=== PATIENT | female | born 1980 | race Caucasian/White ===

== ENCOUNTER 2016-11-13 13:02 | Emergency (ER) | payer OTHER ==
[2016-11-13 13:26] VITALS: BP 147/71
[2016-11-13] MEDS ORDERED: Sodium Chloride 0.9% 10 ML Syringe FLUSH PRN ×2 (13:56→14:19)
--- NOTE | 2016-11-13 14:03 | EDM.PDOC ---
ED HPI GENERAL MEDICAL PROBLEM - General Chief Complaint: Lower Extremity Injury/Pain Stated Complaint: LEG PAIN Time Seen by Provider: 11/13/16 13:32 Source of Information: Reports: Patient History Limitations: Reports: No Limitations - History of Present Illness INITIAL COMMENTS - FREE TEXT/NARRATIVE: Patient is a 36-year-old female who presents to the ED complaining of left hip pain. States the pain started this past Wednesday and has progressively gotten worse. Describes the pain as a dull ache with sharp pain shooting pains down her leg. 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 Patient has history of crohns disease and has been receiving humira injection once a week for 8 wks. Patient has been self administering the humira herself. States she has been giving the shot in the upper leg alternating from right to left. States she just completed antibiotics for infection to the pyoderma gangreosum. States the redness has significant improved with Levaquin and doxycycline antibiotic therapy. She recently completed a ten-day course of both. She has a history of multiple infections to the affected area. Area is tender mild in nature. There's been no red streaking or pain radiating up towards her hip. Dr. Da Silva GI doctor managing her Crohn's disease is concerned that the infection may have moved to her left hip. Requested the patient be seen in the ED with lab work and CT of the left hip obtained. Patient has had intermittent night sweats but no documented fever. She denies any shortness of breath, chest pain, pain with urination, or any additional complaints. 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 Social & Family History - Tobacco Use Smoking Status *Q: Never Smoker - Caffeine Use Caffeine Use: Reports: None - Recreational Drug Use Recreational Drug Use: No Review of Systems - Review of Systems Review Of Systems: See Below Constitutional: Reports: Chills. Denies: Fever Respiratory: Reports: No Symptoms Cardiovascular: Reports: No Symptoms GI/Abdominal: Denies: Abdominal Pain (no change), Decreased Appetite, Diarrhea, Nausea, Vomiting Genitourinary: Reports: No Symptoms Musculoskeletal: Reports: Joint Pain (left hip) Skin: Reports: Wound (pyroderma gangriosum left diaz) ED EXAM, GENERAL - Physical Exam Exam: See Below Exam Limited By: No Limitations General Appearance: Alert, WD/WN, No Apparent Distress Ears: Hearing Grossly Normal Nose: Normal Inspection Throat/Mouth: Normal Voice, No Airway Compromise Neck: Normal Inspection, Supple Respiratory/Chest: No Respiratory Distress, Lungs Clear, Normal Breath Sounds, No Accessory Muscle Use, Chest Non-Tender Cardiovascular: Normal Peripheral Pulses, Regular Rate, Rhythm Peripheral Pulses: 2+: Popliteal (L), Popliteal (R) GI/Abdominal: Normal Bowel Sounds, Soft, Non-Tender, No Organomegaly, No Distention Back Exam: Normal Inspection, Full Range of Motion. No: CVA Tenderness (L), CVA Tenderness (R) Extremities: Other (4.0 x 3.5 cm pyroderma gangriosum to the left diaz with granulated tissue and faint redness to the border. No increased warmth or drainage noted. No red streaking noted. Minimal pain with palaption. Pain with palation of the left hip. No tenderness with palpation of the upper leg/knee. No swelling noted. ) Neurological: Alert, Oriented, CN II-XII Intact, Normal Cognition. No: Normal Gait (mild limp with walking. ) Psychiatric: Normal Affect, Normal Mood Skin Exam: Warm, Dry, Intact, Normal Color Course - Vital Signs Last Recorded V/S: Last Vital Signs Temp 98.4 F 11/13/16 13:18 Pulse 96 11/13/16 13:18 Resp 18 11/13/16 13:18 BP 147/71 H 11/13/16 13:18 Pulse Ox 98 11/13/16 13:18 - Orders/Labs/Meds Orders: Active Orders 24 hr Category Date Time Status Peripheral IV Care [RC] . DIRECTED Care 11/13/16 13:57 Active Hip w Cont Lt [CT] Stat Exams 11/13/16 14:10 Taken CULTURE BLOOD [BC] Stat Lab 11/13/16 14:10 Received CULTURE BLOOD [BC] Stat Lab 11/13/16 14:25 Received Blood Culture x2 Reflex Set [OM.PC] Stat Oth 11/13/16 13:57 Ordered Peripheral IV Insertion Adult [OM.PC] Stat Oth 11/13/16 13:57 Ordered Labs: Laboratory Tests 11/13/16 11/13/16 Range/Units 13:45 13:45 WBC 9.41 (3.98-10.04) K/mm3 RBC 4.35 (3.98-5.22) M/mm3 Hgb 13.5 (11.2-15.7) gm/L Hct 41.1 (34.1-44.9) % MCV 94.5 (79.4-94.8) fl MCH 31.0 (25.6-32.2) pg MCHC 32.8 (32.2-35.5) g/dl RDW Std Deviation 41.6 (36.4-46.3) fL Plt Count 248 (182-369) K/mm3 MPV 10.7 (9.4-12.3) fl Neut % (Auto) 41.7 (34.0-71.1) % Lymph % (Auto) 44.2 (19.3-51.7) % Dickey % (Auto) 10.4 (4.7-12.5) % Eos % (Auto) 3.2 (0.7-5.8) Baso % (Auto) 0.4 (0.1-1.2) % Neut # (Auto) 3.92 (1.56-6.13) K/mm3 Lymph # (Auto) 4.16 H (1.18-3.74) K/mm3 Dickey # (Auto) 0.98 H (0.24-0.36) K/mm3 Eos # (Auto) 0.30 (0.04-0.36) K/mm3 Baso # (Auto) 0.04 (0.01-0.08) K/mm3 Sodium 140 (136-145) mEq/L Potassium 3.9 (3.5-5.1) mEq/L Chloride 105 (98-107) mEq/L Carbon Dioxide 25 (21-32) mEq/L Anion Gap 13.9 (5-15) BUN 13 (7-18) mg/dL Creatinine 0.8 (0.55-1.02) mg/dL Est Cr Clr Drug Dosing 83.95 mL/min Estimated GFR (MDRD) > 60 (>60) mL/min BUN/Creatinine Ratio 16.3 (14-18) Glucose 87 (74-106) mg/dL Calcium 8.9 (8.5-10.1) mg/dL Total Bilirubin 0.2 (0.2-1.0) mg/dL AST 13 L (15-37) U/L ALT 21 (14-59) U/L Alkaline Phosphatase 63 (46-116) U/L C-Reactive Protein < 0.2 (<1.0) mg/dL Total Protein 7.7 (6.4-8.2) g/dl Albumin 4.0 (3.4-5.0) g/dl Globulin 3.7 gm/dL Albumin/Globulin Ratio 1.1 (1-2) Meds: Medications Discontinued Medications Generic Name Dose Route Start Last Admin Trade Name Freq PRN Reason Stop Dose Admin Iopamidol 125 ml 11/13/16 14:19 11/13/16 14:44 Isovue-300 (61%) IVPUSH 11/13/16 14:20 125 ml ONETIME ONE Administration Sodium Chloride 10 ml 11/13/16 13:56 11/13/16 14:17 Saline Flush FLUSH 10 ml ASDIRECTED PRN Administration Keep Vein Open Sodium Chloride 10 ml 11/13/16 14:19 11/13/16 14:44 Saline Flush FLUSH 10 ml ONETIME PRN Administration IV FLUSH - Re-Assessments/Exams Free Text/Narrative Re-Assessment/Exam: 11/13/16 14:00 Ordered peripheral IV. Pain is controlled. feeding. Initial labs include CBC, chem 14, CRP, and blood cultures x2. Discussed patient with Dr. Oracio CASTRO second chef Joseph Zavala. He knows the patient very well and is managing her Crohn' s. He requests CBC, C14, CRP and left hip CT. IF labs are normal and Left HIp CT negative send home with tylenol only. 11/13/16 1545 Labs reviewed. Essentially normal. 1605 CT of the hip impression: CT study of the left hip appears within normal limits. If infection is still strongly suspected, arthrocentesis is recommended. Will discharge patient home with instructions. Departure - Departure Time of Disposition: 16:18 Disposition: Home, Self-Care 01 Condition: good Clinical Impression: Left hip pain, Immunosuppressed status Crohns disease Qualifiers: Gastrointestinal tract location: unspecified location Digestive disease complication type: unspecified complication Qualified Code(s): K50.919 - Crohn' s disease, unspecified, with unspecified complications - Discharge Information Instructions: Hip Pain Referrals: Smitha Castillo, FINANCIAL SALES PROFESSIONAL [Primary Care Provider] - Forms: ED Department Discharge Additional Instructions: Labs and CT of the left hip were normal. We'll have her utilize Tylenol 650 mg every 4-6 hours for left hip pain. Refrain from any aggravating factors. Continue with current treatment of pyroderma gangriosum. See your PCP this coming week for reevaluation. Suggest scheduling appt with Dr. Oracio CASTRO doctor for followup as well in the next 1-2 wks. Return to the E.D. if you develop any new or worsening symptoms. - My Orders Last 24 Hours: My Active Orders 11/13/16 13:57 Peripheral IV Care [RC] . DIRECTED Blood Culture x2 Reflex Set [OM.PC] Stat Peripheral IV Insertion Adult [OM.PC] Stat 11/13/16 14:10 Hip w Cont Lt [CT] Stat CULTURE BLOOD [BC] Stat 11/13/16 14:25 CULTURE BLOOD [BC] Stat - Assessment/Plan Last 24 Hours: My Active Orders 11/13/16 13:57 Peripheral IV Care [RC] . DIRECTED Blood Culture x2 Reflex Set [OM.PC] Stat Peripheral IV Insertion Adult [OM.PC] Stat 11/13/16 14:10 Hip w Cont Lt [CT] Stat CULTURE BLOOD [BC] Stat 11/13/16 14:25 CULTURE BLOOD [BC] Stat
[2016-11-13] MEDS ORDERED: Iopamidol 612 MG/ML 150 ML Bottle IVPUSH ONE (14:19)
--- NOTE | 2016-11-16 10:23 | CT ---
CT left hip Technique: Multiple axial sections were obtained through the left hip. Study was obtained with contrast. Findings: No abnormal enhancement is seen around the left hip. No fluid collections around the left hip are seen to indicate soft tissue abscess. No joint effusion is appreciated on this exam. No fracture or other acute bony abnormality is seen. Joint space appears preserved within the left hip. Impression: 1. CT study of the left hip appears within normal limits. If hip infection is still strongly suspected, arthrocentesis is then recommended. Diagnostic code #1 MTDD
== END 2016-11-13 16:30 | disposition home or self-care (01) ==
LOC: JD.ED 13:02
DX: M25.552 Pain in left hip (principal); K50.919 Crohn's disease, unspecified, with unspecified complications; K21.9 Gastro-esophageal reflux disease without esophagitis
CPT/HCPCS: 36415; 73701; 80053; 85025; 86140; 87040; 99284; J7050; Q9967

== ENCOUNTER 2017-08-05 17:44 | Emergency (ER) | payer OTHER ==
[2017-08-05 17:57] VITALS: BP 108/79
[2017-08-05] MEDS ORDERED: Cephalexin 500 MG Cap PO ONE (18:20)
--- NOTE | 2017-08-05 18:23 | EDM.PDOC ---
ED HPI GENERAL MEDICAL PROBLEM - General Chief Complaint: Lower Extremity Injury/Pain Stated Complaint: STICHES RIPPED OPEN ON R ANKLE Time Seen by Provider: 08/05/17 17:55 Source of Information: Reports: Patient, Family (Mother) History Limitations: Reports: No Limitations - History of Present Illness INITIAL COMMENTS - FREE TEXT/NARRATIVE: The patient states that she has had a tattoo on the lateral aspect of her distal right leg for many years. She decided to have it modified with red dye about 3 years ago, however, the modified areas never healed. The non-healed areas were excised per the Plastic Surgeon Dr. Quentin Alan, from [facility], this past 07/30/2017. The patient states that she slipped and fell on ice around 17:10 tonight, somehow cutting several of the sutures holding the inferior aspect of the wound. The patient is otherwise uninjured. The patient's PCP is Zayda Castillo. Right Lower Ankle Pain Score (Numeric/FACES): 7 - Related Data Allergies Allergy/AdvReac Type Severity Reaction Status Date / Time No Known Allergies Allergy Verified 08/05/17 17:51 Home Meds: Home Meds Adalimumab [Humira] 1 injection INJECT WEEKLY 11/13/16 [History] Cephalexin [Keflex] 1 tab PO Q6H #16 capsule 08/05/17 [Rx] Past Medical History Gastrointestinal History: Reports: GERD, Inflammatory Bowel Disease (Crohn disease) Psychiatric History: Reports: Depression, Other (See Below) (Fibromyalgia) Dermatologic History: Reports: Other (See Below) (Pyoderma gangrenosum) - Past Surgical History GI Surgical History: Reports: Colonoscopy, EGD Social & Family History - Tobacco Use Smoking Status *Q: Former Smoker Years of Tobacco use: 2 Packs/Tins Daily: 0.1 Month Tobacco Last Used: Quit 2014 - Caffeine Use Caffeine Use: Reports: None - Alcohol Use Alcohol Use History: Yes Alcohol Use Frequency: Socially - Recreational Drug Use Recreational Drug Use: No - Living Situation & Occupation Living situation: Reports: Single, Alone 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 ED EXAM, GENERAL - Physical Exam Exam: See Below Exam Limited By: No Limitations General Appearance: Alert, WD/WN, No Apparent Distress Extremities: Other (There is a tattoo on the lateral aspect of the patient's distal right leg. Within the tattoo, there is a backwards "L"-shaped sutured wound, the lower aspect of which, measuring approximately 4 cm in length, has opened up with cut sutures. The skin tension is high, therefore the edges of the wound separate by up to 2 cm, and cannot be approximated by pushing the edges together with my fingers. The skin edges are lined by fresh suture puncture wheeler, none of which appear to have torn. Neurovascular status of the right lower extremity appears to be intact.) Course - Vital Signs Last Recorded V/S: Last Vital Signs Temp 36.3 C 08/05/17 17:53 Pulse 87 08/05/17 17:53 Resp 16 08/05/17 17:53 BP 108/79 08/05/17 17:53 Pulse Ox 98 08/05/17 17:53 - Orders/Labs/Meds Meds: Medications Discontinued Medications Generic Name Dose Route Start Last Admin Trade Name Freq PRN Reason Stop Dose Admin Cephalexin 500 mg 08/05/17 18:20 08/05/17 18:26 Keflex PO 08/05/17 18:21 500 mg ONETIME ONE Administration - Re-Assessments/Exams Free Text/Narrative Re-Assessment/Exam: 08/05/17 18:18 While the patient fell and opened up her surgical wound only an hour ago, the original wound is 6 days old. Closure at this point would significantly increase the risk of an infection. Further, since the edges of the skin have been holding the sutures, the edges of the wound are now full of suture holes. If I attempted to close the wound now, I would have to place sutures distal to those holes, which may mean suturing up devitalized tissue if the edges were not revised. I do not see any benefit in trying to close the wound tonight. Instead, I have elected to dress the wound and have the patient follow-up with her Plastic Surgeon, Dr. Quentin Alan, first thing tomorrow morning. In the meantime, I will start her on Keflex. Departure - Departure Time of Disposition: 18:23 Disposition: Home, Self-Care 01 Condition: Fair Clinical Impression: Broken suture - Discharge Information Prescriptions: Cephalexin [Keflex] 1 tab PO Q6H #16 capsule Instructions: Incision Care, Adult Referrals: Quentin Alan Jr, MD [Consulting Physician] - Forms: ED Department Discharge Additional Instructions: You were seen in the emergency room after you slipped and fell, opening up several sutures on your right leg. The wound has been dressed. Leave this alone overnight. You have been started on the antibiotic Keflex. A prescription for this has been sent to the [facility] located in the [employer] store. Take one tablet every 6 hours, as prescribed. Take [id number] Tylenol or ibuprofen as needed for discomfort. Contact the office of your Plastic Surgeon, Dr. Quentin Alan, first thing tomorrow morning. When you see Dr. Alan, let him know that you are on Keflex, to see if he wants to keep you on it. If any other problems, please do not hesitate to return to the ER.
== END 2017-08-05 18:40 | disposition home or self-care (01) ==
LOC: JD.ED 17:44
DX: S91.011D Laceration without foreign body, right ankle, subsequent encounter (principal); Z87.891 Personal history of nicotine dependence; X58.XXXD Exposure to other specified factors, subsequent encounter
CPT/HCPCS: 99283; A9270

== ENCOUNTER 2019-03-01 10:41 | Emergency (ER) | payer OTHER ==
[2019-03-01 11:10] VITALS: BP 144/100; PULSE 78
[2019-03-01] MEDS ORDERED: Ondansetron 4 MG/2 ML SDV IVPUSH ONE ×2 (12:12→13:30)
[2019-03-01] MEDS ORDERED: HYDROmorphone 0.5 MG/0.5 ML Syringe IVPUSH ONE ×2 (12:12→15:15)
[2019-03-01] MEDS ORDERED: Sodium Chloride 0.9% 1,000 ML IV SCH (12:15)
--- NOTE | 2019-03-01 12:15 | EDM.PDOC ---
ED HPI GENERAL MEDICAL PROBLEM - General Chief Complaint: Flank Pain Stated Complaint: KIDNEY STONES Time Seen by Provider: 03/01/19 11:44 Source of Information: Reports: Patient, Other (CBC, CMP, CRP, U/A results from [facility] this AM) History Limitations: Reports: No Limitations - History of Present Illness INITIAL COMMENTS - FREE TEXT/NARRATIVE: Ms. Humphreys is a very pleasant 39-year-old woman with a past medical history significant for untreated GERD and treated Crohn disease, who states that she developed nausea 2 days ago, 02/27/2019, then emesis yesterday morning, 02/28/2019. She was able to go to work, but had additional nausea and vomiting while at work. She developed left flank pain around 11:00 yesterday morning, which has been progressively getting worse. The pain has been waxing and waning, but she notes that it is made worse if she lies in the left decubitus position. She has not had any recent fever. No recent constipation or diarrhea, although she states that she has had occasional burning when she has a bowel movement, and occasional blood when wiping, although she has not noticed any bloody bowel movements. No dysuria or urinary frequency, but she has had urinary urgency. No prior similar symptoms. The patient was seen by her PCP this morning. A CBC, CMP, CRP, and urinalysis were all performed, and all were unremarkable. Her urinalysis showed trace blood and trace leukocyte esterase, but 0-2 RBCs and 0-5 WBCs, with few bacteria. She was then instructed to come here to obtain a CT scan to evaluate for a ureterolith. The patient's PCP is Dr. Edita Schmidt. Her Kennel Keeper is Dr. Modesto Da Silva. Her Water/Wastewater Project Manager is Dr. Anthony Curtis Her Iuss Analyst is KARL Dumont. Her pain retail department manager is Shabana Rizo NP. She does not recall the name of her ENT or Urologist. Left Flank Pain Score (Numeric/FACES): 7 - Related Data Allergies Allergy/AdvReac Type Severity Reaction Status Date / Time No Known Allergies Allergy Verified 03/01/19 11:44 Home Meds: Home Meds Adalimumab [Humira] 40 mg INJECT ASDIRECTED 11/13/16 [History] Cyclobenzaprine [Flexeril] 10 mg PO BEDTIME PRN 03/01/19 [History] Fluticasone Propionate [Flonase] 1 spray NASBOTH DAILY 03/01/19 [History] Hyoscyamine [Hyomax-SL] 0.125 mg PO TID PRN 03/01/19 [History] Methocarbamol 500 mg PO TID PRN 03/01/19 [History] Ondansetron [Zofran ODT] 1 tab PO Q8H PRN #10 tab.dis 03/01/19 [Rx] Ondansetron [Zofran ODT] 4 mg SL Q4HR PRN 03/01/19 [History] Orphenadrine [Norflex] 1 tab PO Q12H PRN #14 tab.er 03/01/19 [Rx] Sulfacetamide Sodium/Sulfur [Sulfacetamide-Sulfur 10-5% Crm] 1 applic TOP DAILY 03/01/19 [History] Triamcinolone Acetonide [Triamcinolone Acetonide 0.5%] 1 applic TOP BID [History] Past Medical History HEENT History: Reports: Allergic Rhinitis Gastrointestinal History: Reports: GERD (untreated), Inflammatory Bowel Disease (Crohn disease dx'd 2004) Musculoskeletal History: Reports: Arthritis (spine) Psychiatric History: Reports: Depression (untreated), Other (See Below) ( Fibromyalgia - untreated) Hematologic History: Reports: B12 Deficiency, Iron Deficiency Immunologic History: Reports: Other (See Below) Other Immunologic History: HLA-B27 positive Dermatologic History: Reports: Other (See Below) (Pyoderma gangrenosum) - Past Surgical History HEENT Surgical History: Reports: Adenoidectomy, Oral Surgery (wisdom teeth extraction), Other (See Below) (Right inner ear surgery) GI Surgical History: Reports: Colonoscopy (x 5 or 6), EGD (x 3) Social & Family History - Tobacco Use Smoking Status *Q: Former Smoker Years of Tobacco use: 5 Packs/Tins Daily: 0.2 Month/Year Tobacco Last Used: Quit 2015 - Caffeine Use Caffeine Use: Reports: Soda - Alcohol Use Alcohol Use History: Yes Alcohol Use Frequency: Rarely - Recreational Drug Use Recreational Drug Use: Yes Drug Use in Last 12 Months: No Recreational Drug Type: Reports: Marijuana/Hashish (last smoked in 2011) - Living Situation & Occupation Living situation: Reports: Single, with Family 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 ED EXAM, GI/ABD - Physical Exam Exam: See Below Exam Limited By: No Limitations General Appearance: Alert, WD/WN, No Apparent Distress Eyes: Bilateral: Normal Appearance, EOMI Ears: Normal External Exam, Hearing Grossly Normal Nose: Normal Inspection Throat/Mouth: Normal Inspection, Normal Lips, Normal Voice, No Airway Compromise Head: Atraumatic, Normocephalic Neck: Normal Inspection, Full Range of Motion Respiratory/Chest: No Respiratory Distress, Lungs Clear, Normal Breath Sounds, No Accessory Muscle Use Cardiovascular: Normal Peripheral Pulses, Regular Rate, Rhythm, No Edema, No Gallop, No JVD, No Murmur, No Rub GI/Abdominal Exam: Normal Bowel Sounds, Soft, No Organomegaly, No Distention, No Abnormal Bruit, No Mass, Tender (Mild discomfort to palpation of the entire abdomen, but tender in the left lower quadrant only) (Female) Exam: Deferred Rectal (Female) Exam: Deferred Back Exam: Normal Inspection, Full Range of Motion, Paraspinal Tenderness (left lumbar). No: CVA Tenderness (L), CVA Tenderness (R) Extremities: Normal Inspection, Normal Range of Motion, No Pedal Edema, Normal Capillary Refill Neurological: Alert, Oriented, Normal Cognition, No Motor/Sensory Deficits Psychiatric: Normal Affect Skin Exam: Warm, Dry, Intact, Normal Color, No Rash Course - Vital Signs Last Recorded V/S: Last Vital Signs Temp 36.9 C 03/01/19 10:58 Pulse 78 03/01/19 10:58 Resp 18 03/01/19 10:58 BP 144/100 H 03/01/19 10:58 Pulse Ox 97 03/01/19 10:58 - Orders/Labs/Meds Orders: Active Orders 24 hr Category Date Time Status Sodium Chloride 0.9% [Normal Saline] 1,000 ml Med 03/01/19 12:15 Active IV ASDIRECTED Medication Orders Sodium Chloride (Normal Saline) 1,000 mls @ 150 mls/hr IV ASDIRECTED DEVON Last Admin: 03/01/19 12:53 Dose: 150 mls/hr Labs: Laboratory Tests 03/01/19 Range/Units 12:28 Urine HCG, Qual Negative (NEGATIVE) Meds: Medications Generic Name Dose Route Start Last Admin Trade Name Bruna PRN Reason Stop Dose Admin Sodium Chloride 1,000 mls @ 150 mls/hr 03/01/19 12:15 03/01/19 12:53 Normal Saline IV 150 mls/hr ASDIRECTED DEVON Administration Discontinued Medications Generic Name Dose Route Start Last Admin Trade Name Bruna PRN Reason Stop Dose Admin Diatrizoate Meglum/Diatrizoate Sod 90 ml 03/01/19 13:47 03/01/19 13:55 Gastrografin 37% PO 03/01/19 13:48 90 ml ONETIME ONE Administration Hydromorphone HCl 0.5 mg 03/01/19 12:12 03/01/19 12:36 Dilaudid IVPUSH 03/01/19 12:13 0.5 mg ONETIME ONE Administration Hydromorphone HCl 0.5 mg 03/01/19 15:15 03/01/19 15:22 Dilaudid IVPUSH 03/01/19 15:16 0.5 mg ONETIME ONE Administration Iopamidol 100 ml 03/01/19 13:47 03/01/19 13:55 Isovue-300 (61%) IVPUSH 03/01/19 13:48 100 ml ONETIME ONE Administration Ondansetron HCl 4 mg 03/01/19 12:12 03/01/19 12:24 Zofran IVPUSH 03/01/19 12:13 4 mg ONETIME ONE Administration Ondansetron HCl 4 mg 03/01/19 13:30 03/01/19 13:43 Zofran IVPUSH 03/01/19 13:31 4 mg ONETIME ONE Administration Sodium Chloride 10 ml 03/01/19 13:47 03/01/19 13:55 Saline Flush FLUSH 03/01/19 13:48 10 ml ONETIME ONE Administration - Re-Assessments/Exams Free Text/Narrative Re-Assessment/Exam: 03/01/19 12:13 The cause of the patient's symptoms is not immediately clear. While she is complaining primarily of left back/flank pain, it is definitely positional, which speaks against a kidney stone. Additionally, on examination, she does not really have CVA tenderness, although she has some mild tenderness to palpation of the paraspinous muscles, suggestive of a muscle spasm. She also has abdominal tenderness, particularly to the left lower quadrant, raising the concern of diverticulitis. I am therefore recommending a CT of the abdomen and pelvis with oral and IV contrast to evaluate. Since blood work was done in the clinic this morning, we do not need to repeat that, although I would like to check a urine test. In the meantime, the patient will receive IV Dilaudid, IV Zofran, and IV fluid. 03/01/19 15:29 The patient's urine test is negative. CT of the abdomen and pelvis with oral and IV contrast is read by Dr. Schilling as: 1. No abnormality is appreciated on CT study of the abdomen and pelvis. Nothing acute is appreciated. 03/01/19 15:40 Test results discussed with the patient her family. The patient's negative workup suggests that her pain could be a skilled skeletal in etiology, although it is also possible that she is suffering from a ruptured ovarian cyst, or some other etiology. I am recommending that we start her on Norflex and have her take [id number] ibuprofen. If her pain persists, she should follow-up with her PCP. The patient is happy with this approach. Departure - Departure Time of Disposition: 15:41 Disposition: Home, Self-Care 01 Condition: Good Clinical Impression: Abdominal pain of unknown etiology, Nausea and vomiting, Flank pain - Discharge Information *PRESCRIPTION DRUG MONITORING PROGRAM REVIEWED*: Not Applicable *COPY OF PRESCRIPTION DRUG MONITORING REPORT IN PATIENT CARMENZA: Not Applicable Referrals: Edita Schmidt MD [Primary Care Provider] - Modesto Da Silva MD [Ordering Only Provider] - Ibis Gillespie PA [Ordering Only Provider] - Anthony Curtis MD [Ordering Only Provider] - Forms: ED Department Discharge Additional Instructions: You were seen in the emergency room for nausea, vomiting, left flank pain, and abdominal pain. In addition to the blood work and urinalysis that was performed by your PCP, workup in the ER included a urine test and a CT scan of your abdomen and pelvis with oral and IV contrast. Your urine test returned negative, and the CT scan of your abdomen and pelvis found no abnormalities. The cause of your symptoms is unclear. Possibilities include muscle spasms and a ruptured ovarian cyst. You have been started on the muscle relaxant Norflex. Prescriptions for Norflex and the anti-nausea medicine Zofran have been sent to the [facility], [facility]. Take one tablet of Norflex every 12 hours, starting tomorrow morning, , 03/02/2019, as prescribed. If you take Norflex, do not also take Flexeril. In addition to Norflex, you may also take [id number] ibuprofen, 2-3 tablets (400-600 mg) every 8 hours, with food, as needed for discomfort. Dissolve one tablet of Zofran on your tongue up to every 8 hours, as needed for nausea/vomiting. If your symptoms persist, please follow-up with your PCP, Dr. Edita Schmidt, for additional evaluation. If any other problems, please do not hesitate to return to the ER. - My Orders Last 24 Hours: My Active Orders 03/01/19 12:15 Sodium Chloride 0.9% [Normal Saline] 1,000 ml IV ASDIRECTED - Assessment/Plan Last 24 Hours: My Active Orders 03/01/19 12:15 Sodium Chloride 0.9% [Normal Saline] 1,000 ml IV ASDIRECTED
[2019-03-01] MEDS ORDERED: Sodium Chloride 0.9% 10 ML Syringe FLUSH ONE (13:47)
[2019-03-01] MEDS ORDERED: Iopamidol 612 MG/ML 100 ML Bottle IVPUSH ONE (13:47)
[2019-03-01] MEDS ORDERED: Diatrizoate Meglumine/Diatrizoate Sodium 37% 120 ML Bottle PO ONE (13:47)
--- NOTE | 2019-03-01 15:26 | CT ---
CT abdomen and pelvis Technique: Multiple axial sections were obtained from above the dome of the diaphragm inferiorly through the pubic symphysis. Intravenous and oral contrast was utilized. Delayed images were obtained through the bladder. Comparison: No prior abdominal imaging is available. Findings: Visualized lung bases show nothing acute. Liver contains no focal parenchymal abnormality. Gallbladder contains no calcified gallstones. Spleen appears within normal limits. Adrenal glands show no nodule. Pancreas is within normal limits. Kidneys show symmetric contrast enhancement without hydronephrosis or mass. Aorta shows no aneurysm. No retroperitoneal adenopathy or mesenteric abnormalities are seen. No pelvic mass or adenopathy is seen. No free fluid or inflammatory change is seen within the abdomen or pelvis. Delayed images show contrast within nondilated distal ureters as well as contrast seen within the bladder. Appendix felt to be visualized and is normal in size. Bone window settings were reviewed which appear within normal limits for the patient's age. Impression: 1. No abnormality is appreciated on CT study of the abdomen and pelvis. Nothing acute is appreciated. Diagnostic code #1
[2019-03-01] MEDS ORDERED: Orphenadrine 100 MG Tab.ER PO STA (15:39)
== END 2019-03-01 16:00 | disposition home or self-care (01) ==
LOC: JD.ED 10:41
DX: R10.32 Left lower quadrant pain (principal); R11.2 Nausea with vomiting, unspecified; Z87.891 Personal history of nicotine dependence; Z79.899 Other long term (current) drug therapy; Z98.890 Other specified postprocedural states
CPT/HCPCS: 74177; 81025; 96361; 96374; 96375; 96376; 99284; A9270; J1170; J2405; J7040; Q9963; Q9967

== ENCOUNTER 2020-09-01 07:17 | Emergency (ER) | payer OTHER ==
[2020-09-01 07:32] VITALS: BP 144/89; PULSE 95
[2020-09-01] MEDS ORDERED: HYDROmorphone 1 MG/ML Syringe IVPUSH ONE (07:53)
[2020-09-01] MEDS ORDERED: cefTRIAXone 2 GM in Sodium Chloride 0.9% 100 ML IV ONE (07:53)
[2020-09-01] MEDS: Sodium Chloride 0.9% 10 ML Syringe FLUSH PRN ×2 (08:31→09:12)
--- NOTE | 2020-09-01 08:35 | EDM.PDOC ---
ED HPI GENERAL MEDICAL PROBLEM - General Chief Complaint: Skin Complaint Stated Complaint: FACIAL SWELLING POST SURGERY X 10 DAYS Time Seen by Provider: 09/01/20 07:45 Source of Information: Reports: Patient History Limitations: Reports: No Limitations - History of Present Illness INITIAL COMMENTS - FREE TEXT/NARRATIVE: The patient presents with left sided facial pain and swelling On August 23 she had surgery at [facility] in [place] by Dr Navarro for septum and sinus polyp. On August 29 she had a follow up visit and the tubes were removed and some extra packing was removed. There was swelling to the left side of her face and she was put on some keflex. She had 2 days worth of medication and she feels the selling is worse and she has more pain. She woke up this morning with more swelling. She has no fever, chills, cough, chest pain, shortness of breath, abdominal pain, nausea or vomiting. She also has a headache with it. Onset: Gradual Duration: Week(s): Location: Reports: Face Quality: Reports: Sharp Severity: Moderate Improves with: Reports: None Worsens with: Reports: None Associated Symptoms: Reports: Headaches Face/Facial Pain Score (Numeric/FACES): 7 - Related Data Allergies Allergy/AdvReac Type Severity Reaction Status Date / Time No Known Allergies Allergy Verified 09/01/20 07:33 Home Meds: Home Meds methocarbamoL [Methocarbamol] 500 mg PO TID PRN 03/01/19 [History] Albuterol [Ventolin HFA] 2 puff INH DAILY PRN 09/01/20 [History] Famotidine [Pepcid] 20 mg PO DAILY 09/01/20 [History] Fluticasone Propionate [Flonase] 09/01/20 [History] Folic Acid 09/01/20 [History] InFLIXimab [Remicade] 500 mg PO ASDIRECTED 09/01/20 [History] Past Medical History HEENT History: Reports: Allergic Rhinitis Other HEENT History: right ear surgery for inner ear/eardrum Respiratory History: Reports: Bronchitis, Recurrent Gastrointestinal History: Reports: GERD, Inflammatory Bowel Disease Other Gastrointestinal History: chrons disease since 2004 Musculoskeletal History: Reports: Arthritis Psychiatric History: Reports: Depression, Other (See Below) Hematologic History: Reports: B12 Deficiency, Iron Deficiency Immunologic History: Reports: Other (See Below) Other Immunologic History: HLA-B27 positive Dermatologic History: Reports: Other (See Below) Other Dermatologic History: pyroderma gangriosm. 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) ED ROS GENERAL - Review of Systems Review Of Systems: See Below Constitutional: Reports: No Symptoms HEENT: Reports: Other (Left facial edema and pain) Respiratory: Reports: No Symptoms Cardiovascular: Reports: No Symptoms Endocrine: Reports: No Symptoms GI/Abdominal: Reports: No Symptoms : Reports: No Symptoms Musculoskeletal: Reports: No Symptoms ED EXAM, SKIN/RASH Exam: See Below Exam Limited By: No Limitations General Appearance: Alert, No Apparent Distress Eye Exam: Left Eye: Other (Mild lid edema), Bilateral Eye: EOMI, PERRL Ears: Normal External Exam Nose: Normal Inspection Head: Atraumatic, Other (Mild edema to the maxilla with pain upon palpation) Neck: Normal Inspection, Supple, Non-Tender Respiratory/Chest: No Respiratory Distress, Lungs Clear, Normal Breath Sounds Cardiovascular: Regular Rate, Rhythm, No Edema, No Murmur GI/Abdominal: Soft, Non-Tender, No Organomegaly, No Mass Back Exam: Normal Inspection Extremities: Normal Inspection Course - Vital Signs Last Recorded V/S: Last Vital Signs Temp 97.2 F 09/01/20 07:24 Pulse 95 09/01/20 07:24 Resp 18 09/01/20 07:24 BP 144/89 H 09/01/20 07:24 Pulse Ox 99 09/01/20 07:24 - Orders/Labs/Meds Orders: Active Orders 24 hr Category Date Time Status Cardiac Monitoring [RC] . DIRECTED Care 09/01/20 07:52 Active Peripheral IV Care [RC] . DIRECTED Care 09/01/20 07:52 Active Sodium Chloride 0.9% [Saline Flush] Med 09/01/20 07:52 Active 10 ml FLUSH ASDIRECTED PRN Peripheral IV Insertion Adult [OM.PC] Stat Oth 09/01/20 07:52 Ordered Medication Orders Sodium Chloride (Sodium Chloride 0.9% 10 Ml Syringe) 10 ml FLUSH ASDIRECTED PRN PRN Reason: Keep Vein Open Last Admin: 09/01/20 09:12 Dose: 10 ml Documented by: Admin: 09/01/20 08:31 Dose: 10 ml Documented by: KARSON Labs: Laboratory Tests 09/01/20 09/01/20 Range/Units 08:17 08:17 WBC 8.74 (3.98-10.04) K/mm3 RBC 4.34 (3.98-5.22) M/mm3 Hgb 13.8 (11.2-15.7) gm/dl Hct 42.9 (34.1-44.9) % MCV 98.8 H D (79.4-94.8) fl MCH 31.8 (25.6-32.2) pg MCHC 32.2 (32.2-35.5) g/dl RDW Std Deviation 42.3 (36.4-46.3) fL Plt Count 315 (182-369) K/mm3 MPV 10.2 (9.4-12.3) fl Neut % (Auto) 64.7 (34.0-71.1) % Lymph % (Auto) 21.7 (19.3-51.7) % [place] % (Auto) 9.7 (4.7-12.5) % Eos % (Auto) 3.2 (0.7-5.8) Baso % (Auto) 0.6 (0.1-1.2) % Neut # (Auto) 5.65 (1.56-6.13) K/mm3 Lymph # (Auto) 1.90 (1.18-3.74) K/mm3 Montgomery # (Auto) 0.85 H (0.24-0.36) K/mm3 Eos # (Auto) 0.28 (0.04-0.36) K/mm3 Baso # (Auto) 0.05 (0.01-0.08) K/mm3 Sodium 142 (136-145) mEq/L Potassium 4.1 (3.5-5.1) mEq/L Chloride 103 (98-107) mEq/L Carbon Dioxide 27 (21-32) mEq/L Anion Gap 16.1 H (5-15) BUN 13 (7-18) mg/dL Creatinine 1.0 (0.55-1.02) mg/dL Est Cr Clr Drug Dosing 63.22 mL/min Estimated GFR (MDRD) > 60 (>60) mL/min BUN/Creatinine Ratio 13.0 L (14-18) Glucose 101 (74-106) mg/dL Calcium 9.6 (8.5-10.1) mg/dL Total Bilirubin 0.2 (0.2-1.0) mg/dL AST 16 (15-37) U/L ALT 22 (14-59) U/L Alkaline Phosphatase 67 (46-116) U/L C-Reactive Protein 2.2 H* (<1.0) mg/dL Total Protein 8.9 H (6.4-8.2) g/dl Albumin 4.2 (3.4-5.0) g/dl Globulin 4.7 gm/dL Albumin/Globulin Ratio 0.9 L (1-2) Meds: Medications Generic Name Dose Route Start Last Admin Trade Name Bruna PRN Reason Stop Dose Admin Sodium Chloride 10 ml 09/01/20 07:52 09/01/20 09:12 Sodium Chloride 0.9% 10 Ml Syringe FLUSH 10 ml ASDIRECTED PRN Administration Keep Vein Open Discontinued Medications Generic Name Dose Route Start Last Admin Trade Name Bruna PRN Reason Stop Dose Admin Hydromorphone HCl 1 mg 09/01/20 07:53 09/01/20 08:23 Hydromorphone 1 Mg/Ml Syringe IVPUSH 09/01/20 07:54 1 mg ONETIME ONE Administration Ceftriaxone Sodium 2 gm/ 100 mls @ 200 mls/hr 09/01/20 07:53 09/01/20 08:30 Sodium Chloride IV 09/01/20 08:22 200 mls/hr ONETIME ONE Administration Iopamidol 80 ml 09/01/20 09:11 09/01/20 09:12 Iopamidol 612 Mg/Ml 100 Ml Bottle IVPUSH 09/01/20 09:12 80 ml ONETIME ONE Administration - Re-Assessments/Exams Free Text/Narrative Re-Assessment/Exam: 09/01/20 08:35 I ordered an IV saline lock, dilaudid 1mg IV, rocephin 2grams IV, labs, and a CT maxillofacial with IV contrast. 09/01/20 09:51 Her CBC and CMP look good. 09/01/20 09:53 Her CRP is elevated at 2.2. Her CT shows paranasal sinus findings. Difficult to determine how much of the sinus findings are acute or chronic. Please correlate with the patient's symptoms. Mild soft tissue swelling within the upper left cheek. No evidence of abscess. No other acute abnormality is appreciated. She feels better. I will keep her on the keflex and I will five her some hydrocodone for at home. He surgeon is in [place] tomorrow. She will try to see her. I have sent the [facility]. Departure - Departure Time of Disposition: 09:55 Disposition: Home, Self-Care 01 Condition: Good Clinical Impression: Facial edema Sinusitis Qualifiers: Sinusitis location: frontal Chronicity: acute Recurrence: non-recurrent Qualified Code(s): J01.10 - Acute frontal sinusitis, unspecified - Discharge Information Referrals: Britt Castillo MD [Primary Care Provider] - Forms: ED Department Discharge Additional Instructions: Continue taking your antibiotics. Try heat on your face and see if that help. Do it 3 times per day for 5 days. Take the hydrocodone for pain. Try to sleep with your head up. Follow up with your doctor tomorrow. Let them know the CT scan was sent to their system. Please return if you are worse. Sepsis Event Note (ED) - Evaluation Sepsis Screening Result: No Definite Risk - Focused Exam Vital Signs: Vital Signs Temp Pulse Resp BP Pulse Ox 09/01/20 07:24 97.2 F 95 18 144/89 H 99 - My Orders Last 24 Hours: My Active Orders 09/01/20 07:52 Cardiac Monitoring [RC] . DIRECTED Peripheral IV Care [RC] . DIRECTED Sodium Chloride 0.9% [Saline Flush] 10 ml FLUSH ASDIRECTED PRN Peripheral IV Insertion Adult [OM.PC] Stat - Assessment/Plan Last 24 Hours: My Active Orders 09/01/20 07:52 Cardiac Monitoring [RC] . DIRECTED Peripheral IV Care [RC] . DIRECTED Sodium Chloride 0.9% [Saline Flush] 10 ml FLUSH ASDIRECTED PRN Peripheral IV Insertion Adult [OM.PC] Stat
[2020-09-01] MEDS ORDERED: Iopamidol 612 MG/ML 100 ML Bottle IVPUSH ONE (09:11)
--- NOTE | 2020-09-01 09:39 | CT ---
CT maxillofacial Technique: Multiple axial sections were obtained from inferior to the mandible through superior to the frontal sinuses. Intravenous contrast was utilized. Reconstructed coronal and sagittal images were obtained. Findings: Mild soft tissue swelling is seen within the upper left cheek. Right and left globes are symmetric. Lacrimal glands are symmetric. No retrobulbar abnormality is appreciated. No focal fluid collections are seen. Scattered lymph nodes are noted which are believed to be within normal limits. Carotid glands and submandibular salivary glands are within normal limits. Moderate mucosal thickening is seen within both maxillary sinuses. Mild mucosal thickening is seen within the ethmoid sinuses with minimal mucosal thickening seen within the sphenoid sinus. Mucosal thickening is also noted within the left frontal sinus. Impression: 1. Paranasal sinus findings as noted above. Difficult to determine how much of the sinus findings are acute or chronic. Please correlate with the patient's symptoms. 2. Mild soft tissue swelling within the upper left cheek. No evidence of abscess. 3. No other acute abnormality is appreciated. Diagnostic code #3
== END 2020-09-01 10:15 | disposition home or self-care (01) ==
LOC: JD.ED 07:17
DX: J01.10 Acute frontal sinusitis, unspecified (principal); R79.82 Elevated C-reactive protein (CRP); K21.9 Gastro-esophageal reflux disease without esophagitis; Z79.899 Other long term (current) drug therapy
CPT/HCPCS: 36415; 70487; 80053; 85025; 86140; 96365; 96375; 99284; J0696; J1170; Q9967

== ENCOUNTER 2020-11-11 08:08 | Emergency (ER) | payer OTHER ==
[2020-11-11 08:34] VITALS: BP 188/105; PULSE 98
[2020-11-11] MEDS ORDERED: cefTRIAXone 1 GM, Lidocaine 1% 2.1 ML IM ONE ×2 (08:53)
[2020-11-11] MEDS ORDERED: Ketorolac 60 MG/2 ML SDV IM ONE (08:54)
[2020-11-11] MEDS ORDERED: HYDROmorphone 1 MG/ML Syringe IM ONE (08:54)
--- NOTE | 2020-11-11 09:01 | EDM.PDOC ---
ED HPI GENERAL MEDICAL PROBLEM - General Chief Complaint: ENT Problem Stated Complaint: LT EAR PAIN Time Seen by Provider: 11/11/20 08:45 Source of Information: Reports: Patient History Limitations: Reports: No Limitations - History of Present Illness INITIAL COMMENTS - FREE TEXT/NARRATIVE: The patient presents with left ear pain. This started on Wednesday and it has gotten worse. She has been having issues with her sinuses and ears since surgery in August. She has no fever or chills. She has no chest pain or shortness of breath. She has no abdominal pain, nausea or vomiting. Onset: Gradual Duration: Day(s): (4) Location: Reports: Other (Left ear) Quality: Reports: Sharp Severity: Severe Improves with: Reports: None Worsens with: Reports: None Associated Symptoms: Reports: No Other Symptoms Left Ear Pain Score (Numeric/FACES): 9 - Related Data Allergies Allergy/AdvReac Type Severity Reaction Status Date / Time No Known Allergies Allergy Verified 11/11/20 08:35 Home Meds: Home Meds methocarbamoL [Methocarbamol] 500 mg PO TID PRN 03/01/19 [History] Albuterol [Ventolin HFA] 2 puff INH DAILY PRN 09/01/20 [History] Famotidine [Pepcid] 20 mg PO DAILY 09/01/20 [History] Fluticasone Propionate [Flonase] 1 spray KAVYA DAILY 09/01/20 [History] Folic Acid 1 tab PO DAILY 09/01/20 [History] InFLIXimab [Remicade] 500 mg PO ASDIRECTED 09/01/20 [History] Amoxicillin/Clavulanate K [Augmentin 875-125 MG] 1 tab PO BID #20 tablet 11/11/20 [Rx] Past Medical History HEENT History: Reports: Allergic Rhinitis Other HEENT History: right ear surgery for inner ear/eardrum Respiratory History: Reports: Bronchitis, Recurrent Gastrointestinal History: Reports: GERD, Inflammatory Bowel Disease Other Gastrointestinal History: chrons disease since 2004 Musculoskeletal History: Reports: Arthritis Psychiatric History: Reports: Depression, Other (See Below) Hematologic History: Reports: B12 Deficiency, Iron Deficiency Immunologic History: Reports: Other (See Below) Other Immunologic History: HLA-B27 positive Dermatologic History: Reports: Other (See Below) Other Dermatologic History: pyroderma gangriosm. 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) ED ROS ENT - Review of Systems Review Of Systems: See Below Constitutional: Reports: No Symptoms HEENT: Reports: Eye Pain (left) Respiratory: Reports: No Symptoms Cardiovascular: Reports: No Symptoms Endocrine: Reports: No Symptoms GI/Abdominal: Reports: No Symptoms : Reports: No Symptoms Musculoskeletal: Reports: No Symptoms ED EXAM, ENT - Physical Exam Exam: See Below Exam Limited By: No Limitations General Appearance: Alert, No Apparent Distress Ears: Normal External Exam, TM Dullness (left), TM Erythema (left), TM Fluid (left) Head: Atraumatic, Normocephalic Neck: Normal Inspection, Supple, Non-Tender Respiratory/Chest: No Respiratory Distress, Lungs Clear, Normal Breath Sounds Cardiovascular: Regular Rate, Rhythm, No Edema, No Murmur GI/Abdominal: Soft, Non-Tender, No Organomegaly, No Mass Extremities: Normal Inspection Neurological: Alert, Oriented, No Motor/Sensory Deficits Course - Vital Signs Last Recorded V/S: Last Vital Signs Temp 98.7 F 11/11/20 08:32 Pulse 98 11/11/20 08:32 Resp 16 11/11/20 08:32 BP 188/105 H 11/11/20 08:32 Pulse Ox 98 11/11/20 08:32 - Orders/Labs/Meds Meds: Medications Discontinued Medications Generic Name Dose Route Start Last Admin Trade Name Germanq PRN Reason Stop Dose Admin Ceftriaxone Sodium 1 gm/ 0 gm 11/11/20 08:53 11/11/20 09:06 Lidocaine HCl 2.1 ml IM 11/11/20 08:54 1 inj ONETIME ONE Administration Hydromorphone HCl 1 mg 11/11/20 08:54 11/11/20 09:07 Hydromorphone 1 Mg/Ml Syringe IM 11/11/20 08:55 1 mg ONETIME ONE Administration Ketorolac Tromethamine 60 mg 11/11/20 08:54 11/11/20 09:07 Ketorolac 60 Mg/2 Ml Sdv IM 11/11/20 08:55 60 mg ONETIME ONE Administration - Re-Assessments/Exams Free Text/Narrative Re-Assessment/Exam: 11/11/20 09:09 I ordered rocephin 1 gram IM, dilaudid 1mg IM and toradol 30mg IM. I will get her on augmentin and something for pain. Departure - Departure Time of Disposition: 09:15 Disposition: Home, Self-Care 01 Condition: Good Clinical Impression: Otitis media Qualifiers: Otitis media type: suppurative Chronicity: acute Laterality: left Recurrence: recurrent Spontaneous tympanic membrane rupture: without spontaneous rupture Qualified Code(s): H66.005 - Acute suppurative otitis media without spontaneous rupture of ear drum, recurrent, left ear - Discharge Information *PRESCRIPTION DRUG MONITORING PROGRAM REVIEWED*: Not Applicable *COPY OF PRESCRIPTION DRUG MONITORING REPORT IN PATIENT CARMENZA: Not Applicable Prescriptions: Amoxicillin/Clavulanate K [Augmentin 875-125 MG] 1 tab PO BID #20 tablet Referrals: Britt Castillo MD [Primary Care Provider] - Alon Ruff MD [Ordering Only Provider] - 1 Week Forms: ED Department Discharge Additional Instructions: Take the augmentin 2 times per day for 10 days. Take tylenol or motrin for pain . If that does not help, try they hydrocodone. Follow up with your ENT. If you would like a second opinion, follow up with Dr Ruff in [place]. Please return if you are worse. Sepsis Event Note (ED) - Evaluation Sepsis Screening Result: No Definite Risk - Focused Exam Vital Signs: Vital Signs Temp Pulse Resp BP Pulse Ox 11/11/20 08:32 98.7 F 98 16 188/105 H 98
== END 2020-11-11 09:25 | disposition home or self-care (01) ==
LOC: JD.ED 08:08
DX: H66.005 Acute suppurative otitis media without spontaneous rupture of ear drum, recurrent, left ear (principal); K21.9 Gastro-esophageal reflux disease without esophagitis; Z79.899 Other long term (current) drug therapy
CPT/HCPCS: 96372; 99282; J0696; J1170; J1885; 99283

== ENCOUNTER 2023-06-04 05:34 | Emergency (ER) | payer OTHER ==
[2023-06-04 05:50] VITALS: BP 154/81; PULSE 70
[2023-06-04] MEDS ORDERED: Metoclopramide 10 MG/2 ML SDV IVPUSH ONE (06:24)
[2023-06-04] MEDS ORDERED: HYDROmorphone 1 MG/ML Syringe IVPUSH ONE (06:24)
[2023-06-04] MEDS ORDERED: Dextrose 5%-0.9% NaCl 1,000 ML IV SCH (06:30)
[2023-06-04 06:31] LABS: BASOPHILS ABSOLUTE AUTO 0.1 K/mm3 (0.0-0.2); BASOPHILS PERCENT AUTO 0.5 % (0.0-1.0); EOSINOPHILS ABSOLUTE AUTO 0.1 K/mm3 (0.0-0.4); EOSINOPHILS PERCENT AUTO 0.9 % (0.0-6.0); HEMATOCRIT 40.7 % (37.0-47.0); HEMOGLOBIN 13.7 gm/dl (12.0-16.0); IMMATURE GRAN ABSOLUTE AUTO 0.04 K/mm3 (0.00-0.05); IMMATURE GRAN PERCENT AUTO 0.3 % (0.0-0.4); LYMPHOCYTES ABSOLUTE AUTO 2.1 K/mm3 (1.0-4.8); LYMPHOCYTES PERCENT AUTO 17.4 % (24.0-44.0); MEAN CORPUSCULAR HEMOGLOBIN 31.4 pg (28.0-32.0); MEAN CORPUSCULAR HGB CONC 33.7 g/dl (32.0-36.0); MEAN CORPUSCULAR VOLUME 93.1 fl (83.0-99.0); MEAN PLATELET VOLUME 10.6 fl (9.4-12.3); MONOCYTES ABSOLUTE AUTO 0.9 K/mm3 (0.0-0.8); MONOCYTES PERCENT AUTO 7.1 % (0.0-8.0); NEUTROPHILS ABSOLUTE AUTO 9.1 K/mm3 (1.8-7.7); NEUTROPHILS PERCENT AUTO 73.8 % (41.0-71.0); PLATELET COUNT,PLT 291 K/mm3 (150-400); RED BLOOD CELL COUNT 4.37 M/mm3 (4.10-5.30)
[2023-06-04 06:52] LABS: A/G RATIO 1.1 (1-2); ALANINE AMINOTRANSFERASE,ALT 18 U/L (14-59); ALBUMIN 4.1 g/dl (3.4-5.0); ALKALINE PHOSPHATASE 48 U/L (46-116); ANION GAP 11.4 (5-15); ASPARTATE AMNIOTRANSFERASE,AST 18 U/L (15-37); BILIRUBIN TOTAL 0.4 mg/dL (0.2-1.0); BLOOD UREA NITROGEN,BUN 10 mg/dL (7-18); BUN/CREATININE RATIO 11.1 (14-18); C-REACTIVE PROTEIN <0.2 mg/dL (<1.0); CALCIUM 9.1 mg/dL (8.5-10.1); CARBON DIOXIDE,CO2 29 mEq/L (21-32); CHLORIDE,CL 101 mEq/L (98-107); CREATININE 0.9 mg/dL (0.55-1.02); EST CRCL DRUG DOSING (CG) 66.67 mL/min; ESTIMATED GFR 81 mL/min (>60); GLUCOSE RANDOM 122 mg/dL (70-99); LIPASE 18 U/L (16-77); MAGNESIUM 1.8 mg/dL (1.8-2.4); POTASSIUM,K 3.4 mEq/L (3.5-5.1); PROTEIN TOTAL,TP 7.9 g/dl (6.4-8.2); SODIUM,NA 138 mEq/L (136-145)
[2023-06-04 07:08] LABS: INR 0.94; PROTHROMBIN TIME 10.1 SECONDS (9.7-12.0)
[2023-06-04 07:10] LABS: PTT,PARTIAL THROMBOPLSTIN TIME 24.8 SECONDS (21.7-31.4)
[2023-06-04] MEDS ORDERED: Sodium Chloride 0.9% 10 ML Syringe FLUSH ONE (07:42)
[2023-06-04] MEDS ORDERED: Iopamidol 612 MG/ML 100 ML Bottle IVPUSH ONE ×2 (07:42→07:43)
[2023-06-04] MEDS: Sodium Chloride 0.9% 10 ML Syringe FLUSH PRN ×2 (09:05→09:31)
[2023-06-04 09:11] LABS: APPEARANCE,URINE CLEAR (Clear); BILIRUBIN,URINE NEGATIVE (Negative); COLOR,URINE YELLOW (Yellow); GLUCOSE,URINE TRACE (Negative); KETONES,URINE NEGATIVE (Negative); LEUKOCYTE ESTERASE,URINE NEGATIVE (Negative); NITRITE,URINE NEGATIVE (Negative); OCCULT BLOOD,URINE NEGATIVE (Negative); PH,URINE 8.5 (5.0-8.0); PROTEIN,URINE NEGATIVE (Negative)
[2023-06-04] MEDS ORDERED: Prochlorperazine 5 MG in Sodium Chloride 0.9% 50 ML IV ONE (09:11)
[2023-06-04] MEDS ORDERED: HYDROmorphone 0.5 MG/0.5 ML Syringe IVPUSH ONE (09:11)
[2023-06-04 09:23] LABS: BACTERIA,URINE FEW /hpf (FEW); EPITHELIAL CELLS,URINE 0-5 /hpf (0-5); MUCUS,URINE MODERATE /hpf (FEW); RBC,URINE 0-5 /hpf (0-5); WBC,URINE 0-5 /hpf (0-5)
[2023-06-04 09:24] LABS: AMORPHOUS SEDIMENT,URINE FEW /hpf (NOT SEEN)
[2023-06-04] MEDS ORDERED: Prochlorperazine 10 MG/2 ML SDV IV ONE (09:30)
[2023-06-04] MEDS ORDERED: Levofloxacin/Dextrose 5%-Water 250 MG in Premix Bag 1 BAG IV ONE (09:33)
[2023-06-04] MEDS ORDERED: metroNIDAZOLE/Normal Saline 500 MG in Premix Bag 1 BAG IV ONE (09:33)
[2023-06-04] MEDS ORDERED: Dicyclomine 10 MG Cap PO ONE (09:33)
== END 2023-06-04 13:40 | disposition home or self-care (01) ==
LOC: JD.ED 05:34
DX: K52.9 Noninfective gastroenteritis and colitis, unspecified (principal); Z91.041 Radiographic dye allergy status; Z79.899 Other long term (current) drug therapy
CPT/HCPCS: 36415; 74018; 74176; 80053; 81001; 83605; 83690; 83735; 84703; 85025; 85610; 85730; 86140; 87045; 87046; 87899; 96361; 96365; 96368; 96375; 96376; 99284; A9270; J0780; J1170; J1836; J1956; J2765; J3490; J7042; 74177

== ENCOUNTER 2024-04-03 12:34 | Emergency (ER) | payer OTHER ==
[2024-04-03] MEDS ORDERED: Sodium Chloride 0.9% 10 ML Syringe FLUSH PRN (13:04)
[2024-04-03 13:23] LABS: BASOPHILS PERCENT AUTO 0.4 % (0.0-1.0); EOSINOPHILS ABSOLUTE AUTO 0.2 K/mm3 (0.0-0.4); EOSINOPHILS PERCENT AUTO 1.8 % (0.0-6.0); HEMATOCRIT 38.8 % (37.0-47.0); HEMOGLOBIN 13.2 gm/dl (12.0-16.0); IMMATURE GRAN ABSOLUTE AUTO 0.03 K/mm3 (0.00-0.05); IMMATURE GRAN PERCENT AUTO 0.3 % (0.0-0.4); LYMPHOCYTES ABSOLUTE AUTO 1.4 K/mm3 (1.0-4.8); LYMPHOCYTES PERCENT AUTO 14.7 % (24.0-44.0); MEAN CORPUSCULAR HEMOGLOBIN 30.6 pg (28.0-32.0); MEAN CORPUSCULAR VOLUME 89.8 fl (83.0-99.0); MEAN PLATELET VOLUME 10.6 fl (9.4-12.3); MONOCYTES ABSOLUTE AUTO 0.6 K/mm3 (0.0-0.8); MONOCYTES PERCENT AUTO 6.3 % (0.0-8.0); NEUTROPHILS PERCENT AUTO 76.5 % (41.0-71.0); PLATELET COUNT,PLT 275 K/mm3 (150-400); RED BLOOD CELL COUNT 4.32 M/mm3 (4.10-5.30); WHITE BLOOD CELL COUNT,WBC 9.21 K/mm3 (3.9-11.3)
[2024-04-03] MEDS: Sodium Chloride 0.9% 1,000 ML IV ONE (13:23)
[2024-04-03] MEDS: diphenhydrAMINE 50 MG/ML SDV IVPUSH ONE (13:23)
[2024-04-03] MEDS: methylPREDNISolone Sodium Succinate 125 MG/2 ML SDV IVPUSH ONE (13:24)
[2024-04-03] MEDS: Morphine 4 MG/ML Syringe IVPUSH ONE ×2 (13:26→15:36)
[2024-04-03 14:00] LABS: A/G RATIO 0.9 (1-2); ALBUMIN 3.7 g/dl (3.4-5.0); ANION GAP 16.1 (5-15); BILIRUBIN TOTAL 0.7 mg/dL (0.2-1.0); CALCIUM 9.4 mg/dL (8.5-10.1); EST CRCL DRUG DOSING (CG) 59.39 mL/min; MAGNESIUM 1.7 mg/dL (1.8-2.4); POTASSIUM,K 4.1 mEq/L (3.5-5.1)
[2024-04-03] MEDS: Sodium Chloride 0.9% 10 ML Syringe FLUSH PRN (14:38)
[2024-04-03] MEDS: Iopamidol 612 MG/ML 100 ML Bottle IVPUSH ONE (14:38)
[2024-04-03 15:05] LABS: APPEARANCE,URINE CLEAR (Clear); BILIRUBIN,URINE NEGATIVE (Negative); COLOR,URINE YELLOW (Yellow); GLUCOSE,URINE NEGATIVE (Negative); KETONES,URINE 1+ (Negative); LEUKOCYTE ESTERASE,URINE NEGATIVE (Negative); NITRITE,URINE NEGATIVE (Negative); OCCULT BLOOD,URINE TRACE-INTACT (Negative); PH,URINE 7.5 (5.0-8.0); PROTEIN,URINE NEGATIVE (Negative); UROBILINOGEN,URINE 0.2 (0.2-1.0)
[2024-04-03 15:31] LABS: BACTERIA,URINE FEW /hpf (FEW); MUCUS,URINE FEW /hpf (FEW); RBC,URINE 0-5 /hpf (0-5); WBC,URINE 0-5 /hpf (0-5)
[2024-04-03 16:25] VITALS: BP 118/84; PULSE 80
== END 2024-04-03 16:25 | disposition home or self-care (01) ==
LOC: JD.ED 12:34
DX: K50.919 Crohn's disease, unspecified, with unspecified complications (principal); K21.9 Gastro-esophageal reflux disease without esophagitis; Z91.041 Radiographic dye allergy status; Z79.2 Long term (current) use of antibiotics; Z79.51 Long term (current) use of inhaled steroids; Z79.899 Other long term (current) drug therapy
CPT/HCPCS: 36415; 74177; 80053; 81001; 83690; 83735; 84703; 85025; 96361; 96374; 96375; 96376; 99284; J1200; J2270; J2919; J3490; J7030; Q9967

== ENCOUNTER 2024-05-15 13:19 | Inpatient (IN) | payer OTHER ==
[2024-05-15] MEDS ORDERED: Naloxone 0.4 MG/ML SDV IVPUSH PRN (14:21)
[2024-05-15] MEDS: fentaNYL 100 MCG/2 ML SDV IVPUSH ONE ×2 (14:29→16:07)
[2024-05-15] MEDS: diphenhydrAMINE 50 MG/ML SDV IVPUSH ONE (14:30)
[2024-05-15] MEDS: Metoclopramide 10 MG/2 ML SDV IVPUSH ONE (14:31)
[2024-05-15 14:32] LABS: BASOPHILS PERCENT AUTO 0.3 % (0.0-1.0); EOSINOPHILS ABSOLUTE AUTO 0.1 K/mm3 (0.0-0.4); EOSINOPHILS PERCENT AUTO 0.4 % (0.0-6.0); HEMATOCRIT 42.9 % (37.0-47.0); HEMOGLOBIN 14.1 gm/dl (12.0-16.0); IMMATURE GRAN ABSOLUTE AUTO 0.03 K/mm3 (0.00-0.05); IMMATURE GRAN PERCENT AUTO 0.2 % (0.0-0.4); LYMPHOCYTES ABSOLUTE AUTO 1.1 K/mm3 (1.0-4.8); LYMPHOCYTES PERCENT AUTO 9.1 % (24.0-44.0); MEAN CORPUSCULAR HEMOGLOBIN 31.1 pg (28.0-32.0); MEAN CORPUSCULAR HGB CONC 32.9 g/dl (32.0-36.0); MEAN CORPUSCULAR VOLUME 94.7 fl (83.0-99.0); MEAN PLATELET VOLUME 10.5 fl (9.4-12.3); MONOCYTES ABSOLUTE AUTO 0.5 K/mm3 (0.0-0.8); NEUTROPHILS ABSOLUTE AUTO 10.4 K/mm3 (1.8-7.7); PLATELET COUNT,PLT 308 K/mm3 (150-400); RED BLOOD CELL COUNT 4.53 M/mm3 (4.10-5.30); WHITE BLOOD CELL COUNT,WBC 12.14 K/mm3 (3.9-11.3)
[2024-05-15] MEDS: Sodium Chloride 0.9% 10 ML Syringe FLUSH PRN ×2 (14:33→15:01)
[2024-05-15] MEDS: Lactated Ringers 1,000 ML IV ONE (14:34)
[2024-05-15] MEDS: methylPREDNISolone Sodium Succinate 125 MG/2 ML SDV IVPUSH ONE (14:37)
[2024-05-15 14:44] LABS: LACTIC ACID 1.3 mmol/L (0.4-2.0)
[2024-05-15 14:50] LABS: A/G RATIO 0.9 (1-2); ALANINE AMINOTRANSFERASE,ALT 21 U/L (14-59); ALBUMIN 4.1 g/dl (3.4-5.0); ALKALINE PHOSPHATASE 69 U/L (46-116); ANION GAP 12.9 (5-15); ASPARTATE AMNIOTRANSFERASE,AST 13 U/L (15-37); BILIRUBIN TOTAL 0.8 mg/dL (0.2-1.0); BLOOD UREA NITROGEN,BUN 15 mg/dL (7-18); C-REACTIVE PROTEIN 1.37 mg/dL (<0.30); CALCIUM 9.2 mg/dL (8.5-10.1); CARBON DIOXIDE,CO2 26 mEq/L (21-32); CHLORIDE,CL 101 mEq/L (98-107); EST CRCL DRUG DOSING (CG) 59.39 mL/min; ESTIMATED GFR 71 mL/min (>60); GLUCOSE RANDOM 125 mg/dL (70-99); LIPASE 16 U/L (16-77); POTASSIUM,K 3.9 mEq/L (3.5-5.1); PROTEIN TOTAL,TP 8.5 g/dl (6.4-8.2); SODIUM,NA 136 mEq/L (136-145)
[2024-05-15 14:51] LABS: HCG QUANTITATIVE < 1.0 mIU/mL
[2024-05-15] MEDS: Iopamidol 612 MG/ML 100 ML Bottle IVPUSH ONE (15:01)
[2024-05-15] MEDS: Piperacillin/Tazobactam 4.5 GM in Sodium Chloride 0.9% 100 ML IV ONE (16:10)
[2024-05-15] MEDS ORDERED: Ketorolac 30 MG/ML SDV IM PRN (16:51)
[2024-05-15] MEDS ORDERED: Labetalol 100 MG/20 ML MDV IVPUSH PRN (16:57)
[2024-05-15] MEDS ORDERED: hydrALAZINE 20 MG/ML SDV IVPUSH PRN (16:57)
[2024-05-15] MEDS ORDERED: 50% Dextrose in Water 50 ML Syringe IVPUSH PRN (16:59)
[2024-05-15 17:47] LABS: APPEARANCE,URINE CLEAR (Clear); BILIRUBIN,URINE NEGATIVE (Negative); COLOR,URINE YELLOW (Yellow); GLUCOSE,URINE TRACE (Negative); KETONES,URINE 1+ (Negative); LEUKOCYTE ESTERASE,URINE NEGATIVE (Negative); NITRITE,URINE NEGATIVE (Negative); OCCULT BLOOD,URINE 2+ (Negative); PROTEIN,URINE NEGATIVE (Negative); UROBILINOGEN,URINE 0.2 (0.2-1.0)
[2024-05-15 18:02] LABS: BACTERIA,URINE MODERATE /hpf (FEW); MUCUS,URINE FEW /hpf (FEW); WBC,URINE 0-5 /hpf (0-5)
[2024-05-15] MEDS: Dextrose 5%-0.45% NaCl 1,000 ML IV SCH (18:02)
[2024-05-15] MEDS: Ketorolac 30 MG/ML SDV IVPUSH PRN (18:54)
[2024-05-15] MEDS: Insulin Lispro 100 Unit/ML 3 ML KwikPen SUBCUT SCH (19:25)
[2024-05-16] MEDS: Ondansetron 4 MG/2 ML SDV IV PRN (00:10)
[2024-05-16] MEDS: Morphine 2 MG/ML SYRINGE IVPUSH PRN (00:13)
[2024-05-16 04:30] LABS: BASOPHILS PERCENT AUTO 0.1 % (0.0-1.0); HEMOGLOBIN 12.7 gm/dl (12.0-16.0); IMMATURE GRAN ABSOLUTE AUTO 0.04 K/mm3 (0.00-0.05); IMMATURE GRAN PERCENT AUTO 0.3 % (0.0-0.4); LYMPHOCYTES ABSOLUTE AUTO 0.9 K/mm3 (1.0-4.8); LYMPHOCYTES PERCENT AUTO 6.8 % (24.0-44.0); MEAN CORPUSCULAR HEMOGLOBIN 31.4 pg (28.0-32.0); MEAN CORPUSCULAR HGB CONC 33.4 g/dl (32.0-36.0); MEAN CORPUSCULAR VOLUME 93.8 fl (83.0-99.0); MEAN PLATELET VOLUME 10.9 fl (9.4-12.3); MONOCYTES ABSOLUTE AUTO 0.3 K/mm3 (0.0-0.8); MONOCYTES PERCENT AUTO 2.5 % (0.0-8.0); NEUTROPHILS ABSOLUTE AUTO 12.2 K/mm3 (1.8-7.7); NEUTROPHILS PERCENT AUTO 90.3 % (41.0-71.0); PLATELET COUNT,PLT 251 K/mm3 (150-400); RED BLOOD CELL COUNT 4.05 M/mm3 (4.10-5.30); WHITE BLOOD CELL COUNT,WBC 13.52 K/mm3 (3.9-11.3)
[2024-05-16 05:12] LABS: A/G RATIO 0.9 (1-2); ALBUMIN 3.1 g/dl (3.4-5.0); ANION GAP 13.9 (5-15); BILIRUBIN TOTAL 0.5 mg/dL (0.2-1.0); C-REACTIVE PROTEIN 1.42 mg/dL (<0.30); CALCIUM 8.6 mg/dL (8.5-10.1); CREATININE 0.8 mg/dL (0.55-1.02); EST CRCL DRUG DOSING (CG) 74.23 mL/min; MAGNESIUM 1.9 mg/dL (1.8-2.4); PHOSPHORUS 2.9 mg/dL (2.6-4.7); POTASSIUM,K 3.9 mEq/L (3.5-5.1); PROTEIN TOTAL,TP 6.7 g/dl (6.4-8.2)
[2024-05-16 07:59] LABS: SLIDE REVIEW ABNORMAL SMEAR
[2024-05-16] MEDS: Enoxaparin 40 MG/0.4 ML Syringe SUBCUT SCH (08:25)
[2024-05-16] MEDS: Acetaminophen 325 MG Tab PO PRN (09:56)
[2024-05-16] MEDS: Ondansetron 4 MG Tab.DIS PO PRN (13:48)
[2024-05-16] MEDS ORDERED: diphenhydrAMINE 50 MG/ML SDV IVPUSH ONE (15:15)
[2024-05-16] MEDS: diphenhydrAMINE 50 MG/ML SDV IVPUSH ONE (15:27)
[2024-05-16] MEDS: Melatonin 3 MG Tab PO PRN (21:40)
[2024-05-17 04:28] LABS: BASOPHILS PERCENT AUTO 0.2 % (0.0-1.0); EOSINOPHILS ABSOLUTE AUTO 0.1 K/mm3 (0.0-0.4); EOSINOPHILS PERCENT AUTO 0.6 % (0.0-6.0); HEMATOCRIT 33.6 % (37.0-47.0); HEMOGLOBIN 11.1 gm/dl (12.0-16.0); IMMATURE GRAN ABSOLUTE AUTO 0.04 K/mm3 (0.00-0.05); IMMATURE GRAN PERCENT AUTO 0.3 % (0.0-0.4); LYMPHOCYTES ABSOLUTE AUTO 2.7 K/mm3 (1.0-4.8); LYMPHOCYTES PERCENT AUTO 21.4 % (24.0-44.0); MEAN CORPUSCULAR HEMOGLOBIN 31.3 pg (28.0-32.0); MEAN CORPUSCULAR VOLUME 94.6 fl (83.0-99.0); MEAN PLATELET VOLUME 10.8 fl (9.4-12.3); MONOCYTES ABSOLUTE AUTO 1.2 K/mm3 (0.0-0.8); MONOCYTES PERCENT AUTO 9.7 % (0.0-8.0); NEUTROPHILS ABSOLUTE AUTO 8.5 K/mm3 (1.8-7.7); NEUTROPHILS PERCENT AUTO 67.8 % (41.0-71.0); PLATELET COUNT,PLT 215 K/mm3 (150-400); RED BLOOD CELL COUNT 3.55 M/mm3 (4.10-5.30); WHITE BLOOD CELL COUNT,WBC 12.59 K/mm3 (3.9-11.3)
[2024-05-17 05:16] LABS: ANION GAP 13.6 (5-15); BUN/CREATININE RATIO 21.3 (14-18); C-REACTIVE PROTEIN 0.58 mg/dL (<0.30); CALCIUM 8.1 mg/dL (8.5-10.1); CREATININE 0.8 mg/dL (0.55-1.02); EST CRCL DRUG DOSING (CG) 74.23 mL/min; MAGNESIUM 2.1 mg/dL (1.8-2.4); PHOSPHORUS 2.5 mg/dL (2.6-4.7); POTASSIUM,K 3.6 mEq/L (3.5-5.1)
[2024-05-17] MEDS: Famotidine 20 MG Tab PO SCH (08:49)
[2024-05-17] MEDS: Folic Acid 1 MG Tab PO SCH (08:49)
[2024-05-17] MEDS: Citalopram 20 MG Tab PO SCH (08:49)
[2024-05-17] MEDS: DULoxetine 30 MG Cap PO SCH (09:54)
[2024-05-17] MEDS: Potassium Phosphates 30 MMOLE in Sodium Chloride 0.9% 500 ML IV ONE (10:30)
[2024-05-17 15:57] VITALS: BP 142/85; PULSE 75
[2024-05-17] MEDS ORDERED: DULoxetine 30 MG Cap PO SCH (18:00)
== END 2024-05-17 15:43 | disposition home or self-care (01) | DRG 387 ==
LOC: JD.ED 13:19 → JD.MS 16:51
PROVIDERS: ADMIT Student in an Organized Health Care Education/Training Program; ATTEND Student in an Organized Health Care Education/Training Program
DX: K50.112 Crohn's disease of large intestine with intestinal obstruction (principal); K21.9 Gastro-esophageal reflux disease without esophagitis; M19.90 Unspecified osteoarthritis, unspecified site; F32.A Depression, unspecified; K59.00 Constipation, unspecified; M79.7 Fibromyalgia; J45.909 Unspecified asthma, uncomplicated; G47.33 Obstructive sleep apnea (adult) (pediatric); I10 Essential (primary) hypertension; F41.9 Anxiety disorder, unspecified; Z91.041 Radiographic dye allergy status; Z79.51 Long term (current) use of inhaled steroids; Z79.899 Other long term (current) drug therapy; Z79.2 Long term (current) use of antibiotics; Z90.89 Acquired absence of other organs; Z98.890 Other specified postprocedural states
CPT/HCPCS: 36415; 74019; 74019-26; 74177; 74177-26; 80048; 80053; 81001; 82947; 83605; 83690; 83735; 84100; 84702; 85025; 86140; 94761; 96361; 96365; 96375; 96376; 99222; 99232; 99239; 99284; 99285-25; A9270-GY; J1200; J1650; J1815; J1885; J2270; J2405; J2543; J2765; J2919; J3010; J3490; J7040; J7120; J7799; Q9967

== ENCOUNTER 2024-05-31 08:57 | Emergency (ER) | payer OTHER ==
[2024-05-31] MEDS ORDERED: Sodium Chloride 0.9% 10 ML Syringe FLUSH PRN (09:20)
[2024-05-31] MEDS: Ondansetron 4 MG/2 ML SDV IVPUSH ONE (09:46)
[2024-05-31] MEDS: Sodium Chloride 0.9% 1,000 ML IV STA (09:46)
[2024-05-31] MEDS: HYDROmorphone 0.5 MG/0.5 ML Syringe IVPUSH ONE (09:46)
[2024-05-31 09:49] LABS: BASOPHILS PERCENT AUTO 0.3 % (0.0-1.0); EOSINOPHILS ABSOLUTE AUTO 0.5 K/mm3 (0.0-0.4); EOSINOPHILS PERCENT AUTO 4.5 % (0.0-6.0); HEMOGLOBIN 9.5 gm/dl (12.0-16.0); IMMATURE GRAN ABSOLUTE AUTO 0.08 K/mm3 (0.00-0.05); IMMATURE GRAN PERCENT AUTO 0.8 % (0.0-0.4); LYMPHOCYTES ABSOLUTE AUTO 1.6 K/mm3 (1.0-4.8); LYMPHOCYTES PERCENT AUTO 15.8 % (24.0-44.0); MEAN CORPUSCULAR HEMOGLOBIN 31.3 pg (28.0-32.0); MEAN CORPUSCULAR HGB CONC 31.7 g/dl (32.0-36.0); MEAN CORPUSCULAR VOLUME 98.7 fl (83.0-99.0); MEAN PLATELET VOLUME 9.9 fl (9.4-12.3); MONOCYTES ABSOLUTE AUTO 1.2 K/mm3 (0.0-0.8); MONOCYTES PERCENT AUTO 11.8 % (0.0-8.0); NEUTROPHILS ABSOLUTE AUTO 6.9 K/mm3 (1.8-7.7); NEUTROPHILS PERCENT AUTO 66.8 % (41.0-71.0); PLATELET COUNT,PLT 396 K/mm3 (150-400); RED BLOOD CELL COUNT 3.04 M/mm3 (4.10-5.30); WHITE BLOOD CELL COUNT,WBC 10.33 K/mm3 (3.9-11.3)
[2024-05-31 10:06] LABS: A/G RATIO 0.7 (1-2); ALBUMIN 2.9 g/dl (3.4-5.0); ANION GAP 11.1 (5-15); BILIRUBIN TOTAL 0.7 mg/dL (0.2-1.0); C-REACTIVE PROTEIN 11.28 mg/dL (<0.30); CALCIUM 8.9 mg/dL (8.5-10.1); CREATININE 0.8 mg/dL (0.55-1.02); EST CRCL DRUG DOSING (CG) 74.23 mL/min; PROTEIN TOTAL,TP 6.8 g/dl (6.4-8.2)
[2024-05-31 10:10] LABS: POTASSIUM,K 3.1 mEq/L (3.5-5.1)
[2024-05-31] MEDS ORDERED: Acetaminophen/HYDROcodone 325-10 MG Tab PO ONE (10:17)
[2024-05-31] MEDS: Acetaminophen/HYDROcodone 325-5 MG Tab PO ONE (10:25)
[2024-05-31 11:04] VITALS: BP 124/71; PULSE 84
== END 2024-05-31 11:40 | disposition home or self-care (01) ==
LOC: JD.ED 08:57
DX: K94.13 Enterostomy malfunction (principal); K21.9 Gastro-esophageal reflux disease without esophagitis; Z86.16 Personal history of COVID-19; Z90.89 Acquired absence of other organs; Z91.041 Radiographic dye allergy status; Z79.899 Other long term (current) drug therapy
CPT/HCPCS: 36415; 80053; 85025; 86140; 96361; 96374; 96375; 99284; A9270; J2405; J7030

== ENCOUNTER 2024-05-31 17:23 | Emergency (ER) | payer OTHER ==
[2024-05-31 17:38] VITALS: BP 161/85; PULSE 103
[2024-05-31] MEDS: HYDROmorphone 1 MG/ML Syringe IM ONE (18:16)
== END 2024-05-31 19:38 | disposition home or self-care (01) ==
LOC: JD.ED 17:23
DX: K94.13 Enterostomy malfunction (principal); K21.9 Gastro-esophageal reflux disease without esophagitis; Z86.16 Personal history of COVID-19; Z90.89 Acquired absence of other organs; Z91.041 Radiographic dye allergy status; Z79.899 Other long term (current) drug therapy
CPT/HCPCS: 96372; 99282; J1171; 99284

== ENCOUNTER 2024-06-03 09:36 | Emergency (ER) | payer OTHER ==
[2024-06-03 10:21] VITALS: BP 127/71; PULSE 99
[2024-06-03] MEDS: Acetaminophen/oxyCODONE 325-5 MG Tab PO ONE (11:13)
== END 2024-06-03 12:00 | disposition home or self-care (01) ==
LOC: JD.ED 09:36
DX: L24.B3 Irritant contact dermatitis related to fecal or urinary stoma or fistula (principal); L30.4 Erythema intertrigo; G89.18 Other acute postprocedural pain; R10.9 Unspecified abdominal pain; Z86.16 Personal history of COVID-19; Z90.89 Acquired absence of other organs; Z91.041 Radiographic dye allergy status; Z79.899 Other long term (current) drug therapy
CPT/HCPCS: 99283; A9270

== ENCOUNTER 2024-08-12 11:09 | Emergency (ER) | payer OTHER ==
[2024-08-12 12:16] LABS: BASOPHILS ABSOLUTE AUTO 0.1 K/mm3 (0.0-0.2); BASOPHILS PERCENT AUTO 0.6 % (0.0-1.0); EOSINOPHILS ABSOLUTE AUTO 0.2 K/mm3 (0.0-0.4); EOSINOPHILS PERCENT AUTO 2.9 % (0.0-6.0); IMMATURE GRAN ABSOLUTE AUTO 0.02 K/mm3 (0.00-0.05); IMMATURE GRAN PERCENT AUTO 0.3 % (0.0-0.4); LYMPHOCYTES ABSOLUTE AUTO 2.4 K/mm3 (1.0-4.8); LYMPHOCYTES PERCENT AUTO 29.8 % (24.0-44.0); MEAN CORPUSCULAR HGB CONC 32.3 g/dl (32.0-36.0); MEAN PLATELET VOLUME 10.5 fl (9.4-12.3); MONOCYTES ABSOLUTE AUTO 0.7 K/mm3 (0.0-0.8); MONOCYTES PERCENT AUTO 8.4 % (0.0-8.0); NEUTROPHILS ABSOLUTE AUTO 4.6 K/mm3 (1.8-7.7); WHITE BLOOD CELL COUNT,WBC 7.93 K/mm3 (3.9-11.3)
[2024-08-12 12:27] LABS: HEMOGLOBIN 12.6 gm/dl (12.0-16.0)
[2024-08-12 12:28] LABS: MEAN CORPUSCULAR VOLUME 92.9 fl (83.0-99.0); PLATELET COUNT,PLT 307 K/mm3 (150-400)
[2024-08-12 12:36] LABS: ALBUMIN 3.7 g/dl (3.4-5.0); ANION GAP 10.6 (5-15); BILIRUBIN TOTAL 0.3 mg/dL (0.2-1.0); C-REACTIVE PROTEIN 0.09 mg/dL (<0.30); CALCIUM 8.8 mg/dL (8.5-10.1); EST CRCL DRUG DOSING (CG) 59.39 mL/min; POTASSIUM,K 3.6 mEq/L (3.5-5.1); PROTEIN TOTAL,TP 7.5 g/dl (6.4-8.2)
[2024-08-12] MEDS: diphenhydrAMINE 50 MG/ML SDV IVPUSH ONE (13:09)
[2024-08-12] MEDS: Sodium Chloride 0.9% 10 ML Syringe FLUSH PRN (13:34)
[2024-08-12] MEDS: Iopamidol 612 MG/ML 100 ML Bottle IVPUSH ONE (13:34)
[2024-08-12 13:55] LABS: APPEARANCE,URINE CLEAR (Clear); BILIRUBIN,URINE NEGATIVE (Negative); COLOR,URINE YELLOW (Yellow); GLUCOSE,URINE NEGATIVE (Negative); KETONES,URINE NEGATIVE (Negative); LEUKOCYTE ESTERASE,URINE NEGATIVE (Negative); NITRITE,URINE NEGATIVE (Negative); OCCULT BLOOD,URINE TRACE-INTACT (Negative); PH,URINE 6.5 (5.0-8.0); PROTEIN,URINE NEGATIVE (Negative); UROBILINOGEN,URINE 0.2 (0.2-1.0)
[2024-08-12 14:13] LABS: BACTERIA,URINE FEW /hpf (FEW); EPITHELIAL CELLS,URINE 0-5 /hpf (0-5); RBC,URINE 0-5 /hpf (0-5); WBC,URINE NOT SEEN /hpf (0-5)
[2024-08-12 14:14] LABS: MUCUS,URINE NOT SEEN /hpf (FEW)
[2024-08-12 20:43] VITALS: BP 125/84; PULSE 63
== END 2024-08-12 16:00 | disposition home or self-care (01) ==
LOC: JD.ED 11:09
DX: K59.00 Constipation, unspecified (principal); Z90.49 Acquired absence of other specified parts of digestive tract; Z91.041 Radiographic dye allergy status; Z79.899 Other long term (current) drug therapy; Z86.16 Personal history of COVID-19; Z93.3 Colostomy status
CPT/HCPCS: 36415; 74177; 74177-26; 80053; 81001; 84703; 85025; 86140; 96374; 99284-25; J1200; Q9967

== ENCOUNTER 2024-11-27 23:25 | Inpatient (IN) | payer OTHER ==
[2024-11-28] MEDS ORDERED: Sodium Chloride 0.9% 10 ML Syringe FLUSH PRN (00:47)
[2024-11-28 00:57] LABS: BASOPHILS ABSOLUTE AUTO 0.1 K/mm3 (0.0-0.2); BASOPHILS PERCENT AUTO 0.5 % (0.0-1.0); EOSINOPHILS ABSOLUTE AUTO 0.2 K/mm3 (0.0-0.4); EOSINOPHILS PERCENT AUTO 2.1 % (0.0-6.0); HEMATOCRIT 40.9 % (37.0-47.0); HEMOGLOBIN 13.4 gm/dl (12.0-16.0); IMMATURE GRAN ABSOLUTE AUTO 0.05 K/mm3 (0.00-0.05); IMMATURE GRAN PERCENT AUTO 0.4 % (0.0-0.4); LYMPHOCYTES ABSOLUTE AUTO 1.9 K/mm3 (1.0-4.8); LYMPHOCYTES PERCENT AUTO 16.4 % (24.0-44.0); MEAN CORPUSCULAR HEMOGLOBIN 30.7 pg (28.0-32.0); MEAN CORPUSCULAR HGB CONC 32.8 g/dl (32.0-36.0); MEAN CORPUSCULAR VOLUME 93.6 fl (83.0-99.0); MEAN PLATELET VOLUME 10.8 fl (9.4-12.3); MONOCYTES ABSOLUTE AUTO 0.8 K/mm3 (0.0-0.8); MONOCYTES PERCENT AUTO 6.7 % (0.0-8.0); NEUTROPHILS ABSOLUTE AUTO 8.4 K/mm3 (1.8-7.7); NEUTROPHILS PERCENT AUTO 73.9 % (41.0-71.0); PLATELET COUNT,PLT 315 K/mm3 (150-400); RED BLOOD CELL COUNT 4.37 M/mm3 (4.10-5.30); WHITE BLOOD CELL COUNT,WBC 11.41 K/mm3 (3.9-11.3)
[2024-11-28 01:12] LABS: A/G RATIO 1.1 (1-2); ANION GAP 12.5 (5-15); BILIRUBIN TOTAL 0.5 mg/dL (0.2-1.0); BUN/CREATININE RATIO 13.3 (14-18); CALCIUM 9.5 mg/dL (8.5-10.1); CREATININE 0.9 mg/dL (0.55-1.02); EST CRCL DRUG DOSING (CG) 68.88 mL/min; POTASSIUM,K 3.5 mEq/L (3.5-5.1); PROTEIN TOTAL,TP 7.8 g/dl (6.4-8.2)
[2024-11-28] MEDS: Alum Hydrox/Mag Hydrox/Simeth 30 ML, Lidocaine 2% 15 ML PO ONE (01:23)
[2024-11-28] MEDS: Famotidine 20 MG Tab PO ONE (01:23)
[2024-11-28] MEDS: diphenhydrAMINE 50 MG/ML SDV IVPUSH ONE (01:24)
[2024-11-28] MEDS: methylPREDNISolone Sodium Succinate 125 MG/2 ML SDV IVPUSH ONE (01:27)
[2024-11-28] MEDS: Sodium Chloride 0.9% 1,000 ML IV ONE ×3 (01:35→06:07)
[2024-11-28] MEDS: Iopamidol 612 MG/ML 100 ML Bottle IVPUSH ONE (02:27)
[2024-11-28] MEDS ORDERED: Naloxone 0.4 MG/ML SDV IVPUSH PRN (03:29)
[2024-11-28] MEDS: HYDROmorphone 0.5 MG/0.5 ML Syringe IVPUSH PRN (03:57)
[2024-11-28 04:21] LABS: APPEARANCE,URINE CLEAR (Clear); BILIRUBIN,URINE NEGATIVE (Negative); COLOR,URINE YELLOW (Yellow); GLUCOSE,URINE NEGATIVE (Negative); KETONES,URINE NEGATIVE (Negative); LEUKOCYTE ESTERASE,URINE TRACE (Negative); NITRITE,URINE NEGATIVE (Negative); OCCULT BLOOD,URINE NEGATIVE (Negative); PROTEIN,URINE NEGATIVE (Negative); UROBILINOGEN,URINE 0.2 (0.2-1.0)
[2024-11-28 04:47] LABS: BACTERIA,URINE MODERATE /hpf (FEW); MUCUS,URINE NOT SEEN /hpf (FEW); RBC,URINE NOT SEEN /hpf (0-5); WBC,URINE 0-5 /hpf (0-5)
[2024-11-28] MEDS ORDERED: Morphine 4 MG/ML Syringe IVPUSH PRN ×2 (07:47→07:48)
[2024-11-28] MEDS: Ketorolac 30 MG/ML SDV IVPUSH SCH (08:19)
[2024-11-28] MEDS: Morphine 2 MG/ML SYRINGE IVPUSH PRN (10:07)
[2024-11-28] MEDS: Sodium Chloride 0.9% 1,000 ML IV SCH (10:12)
[2024-11-28] MEDS: Heparin Sodium 5,000 Units/ML Vial SUBCUT SCH (13:16)
[2024-11-28] MEDS: Ondansetron 4 MG/2 ML SDV IVPUSH PRN (14:16)
[2024-11-28] MEDS: Citalopram 20 MG Tab PO SCH (16:20)
[2024-11-28] MEDS: ClonazePAM 0.5 MG Tab PO SCH (20:10)
[2024-11-29 04:12] LABS: BASOPHILS PERCENT AUTO 0.1 % (0.0-1.0); HEMATOCRIT 32.6 % (37.0-47.0); HEMOGLOBIN 10.6 gm/dl (12.0-16.0); IMMATURE GRAN ABSOLUTE AUTO 0.06 K/mm3 (0.00-0.05); IMMATURE GRAN PERCENT AUTO 0.5 % (0.0-0.4); LYMPHOCYTES ABSOLUTE AUTO 2.1 K/mm3 (1.0-4.8); LYMPHOCYTES PERCENT AUTO 16.5 % (24.0-44.0); MEAN CORPUSCULAR HEMOGLOBIN 30.7 pg (28.0-32.0); MEAN CORPUSCULAR HGB CONC 32.5 g/dl (32.0-36.0); MEAN CORPUSCULAR VOLUME 94.5 fl (83.0-99.0); MEAN PLATELET VOLUME 10.8 fl (9.4-12.3); MONOCYTES ABSOLUTE AUTO 1.1 K/mm3 (0.0-0.8); NEUTROPHILS ABSOLUTE AUTO 9.2 K/mm3 (1.8-7.7); NEUTROPHILS PERCENT AUTO 73.9 % (41.0-71.0); PLATELET COUNT,PLT 220 K/mm3 (150-400); RED BLOOD CELL COUNT 3.45 M/mm3 (4.10-5.30); WHITE BLOOD CELL COUNT,WBC 12.48 K/mm3 (3.9-11.3)
[2024-11-29 04:55] LABS: A/G RATIO 0.9 (1-2); ALBUMIN 2.9 g/dl (3.4-5.0); ANION GAP 14.9 (5-15); BILIRUBIN TOTAL 0.4 mg/dL (0.2-1.0); CALCIUM 8.2 mg/dL (8.5-10.1); CREATININE 0.8 mg/dL (0.55-1.02); EST CRCL DRUG DOSING (CG) 77.49 mL/min; POTASSIUM,K 3.9 mEq/L (3.5-5.1)
[2024-11-29] MEDS: Morphine 2 MG/ML SYRINGE IVPUSH PRN (10:41)
[2024-11-30 07:53] LABS: BASOPHILS PERCENT AUTO 0.5 % (0.0-1.0); EOSINOPHILS ABSOLUTE AUTO 0.1 K/mm3 (0.0-0.4); EOSINOPHILS PERCENT AUTO 0.9 % (0.0-6.0); HEMATOCRIT 33.7 % (37.0-47.0); HEMOGLOBIN 10.9 gm/dl (12.0-16.0); IMMATURE GRAN ABSOLUTE AUTO 0.02 K/mm3 (0.00-0.05); IMMATURE GRAN PERCENT AUTO 0.3 % (0.0-0.4); LYMPHOCYTES ABSOLUTE AUTO 2.4 K/mm3 (1.0-4.8); LYMPHOCYTES PERCENT AUTO 32.4 % (24.0-44.0); MEAN CORPUSCULAR HEMOGLOBIN 30.6 pg (28.0-32.0); MEAN CORPUSCULAR HGB CONC 32.3 g/dl (32.0-36.0); MEAN CORPUSCULAR VOLUME 94.7 fl (83.0-99.0); MONOCYTES ABSOLUTE AUTO 0.6 K/mm3 (0.0-0.8); MONOCYTES PERCENT AUTO 8.3 % (0.0-8.0); NEUTROPHILS ABSOLUTE AUTO 4.2 K/mm3 (1.8-7.7); NEUTROPHILS PERCENT AUTO 57.6 % (41.0-71.0); PLATELET COUNT,PLT 232 K/mm3 (150-400); RED BLOOD CELL COUNT 3.56 M/mm3 (4.10-5.30); WHITE BLOOD CELL COUNT,WBC 7.37 K/mm3 (3.9-11.3)
[2024-11-30 08:17] LABS: ALBUMIN 2.9 g/dl (3.4-5.0); ANION GAP 10.9 (5-15); BILIRUBIN TOTAL 0.2 mg/dL (0.2-1.0); BUN/CREATININE RATIO 17.5 (14-18); CALCIUM 8.2 mg/dL (8.5-10.1); CREATININE 0.8 mg/dL (0.55-1.02); EST CRCL DRUG DOSING (CG) 77.49 mL/min; POTASSIUM,K 3.9 mEq/L (3.5-5.1); PROTEIN TOTAL,TP 5.8 g/dl (6.4-8.2)
[2024-11-30] MEDS: Acetaminophen 325 MG Tab PO PRN (08:58)
[2024-11-30 17:04] VITALS: BP 108/74; PULSE 60
== END 2024-11-30 17:00 | disposition home or self-care (01) | DRG 389 ==
LOC: JD.ED 23:25 → JD.MS 11-28 04:07
PROVIDERS: ADMIT Surgery; ATTEND Surgery
DX: K56.600 Partial intestinal obstruction, unspecified as to cause (principal); K50.90 Crohn's disease, unspecified, without complications; J30.9 Allergic rhinitis, unspecified; K21.9 Gastro-esophageal reflux disease without esophagitis; K44.9 Diaphragmatic hernia without obstruction or gangrene; K52.3 Indeterminate colitis; M19.90 Unspecified osteoarthritis, unspecified site; F32.A Depression, unspecified; E61.1 Iron deficiency; E53.8 Deficiency of other specified B group vitamins; K43.2 Incisional hernia without obstruction or gangrene; E86.0 Dehydration; Z88.8 Allergy status to other drugs, medicaments and biological substances; Z79.899 Other long term (current) drug therapy; Z98.890 Other specified postprocedural states; Z86.16 Personal history of COVID-19; Z87.891 Personal history of nicotine dependence
CPT/HCPCS: 36415; 51798; 74019; 74019-26; 74177; 74177-26; 80053; 81001; 83690; 84703; 85025; 87086; 96361; 96374; 96375; 99285; 99285-25; A9270-GY; J1171; J1200; J1644; J1885; J2270; J2405; J2919; J7030; Q9967

== ENCOUNTER 2025-05-06 08:39 | Emergency (ER) | payer OTHER ==
[2025-05-06 09:42] LABS: BASOPHILS ABSOLUTE AUTO 0.1 K/mm3 (0.0-0.2); BASOPHILS PERCENT AUTO 0.6 % (0.0-1.0); EOSINOPHILS ABSOLUTE AUTO 0.2 K/mm3 (0.0-0.4); EOSINOPHILS PERCENT AUTO 1.9 % (0.0-6.0); IMMATURE GRAN ABSOLUTE AUTO 0.03 K/mm3 (0.00-0.05); IMMATURE GRAN PERCENT AUTO 0.4 % (0.0-0.4); LYMPHOCYTES ABSOLUTE AUTO 1.0 K/mm3 (1.0-4.8); LYMPHOCYTES PERCENT AUTO 12.3 % (24.0-44.0); MEAN PLATELET VOLUME 10.7 fl (9.4-12.3); MONOCYTES ABSOLUTE AUTO 0.5 K/mm3 (0.0-0.8); MONOCYTES PERCENT AUTO 6.0 % (0.0-8.0); NEUTROPHILS ABSOLUTE AUTO 6.4 K/mm3 (1.8-7.7); NEUTROPHILS PERCENT AUTO 78.8 % (41.0-71.0); NRBC ABSOLUTE 0.00 (0.00-0.02); NRBC PERCENT 0.0 % (0.0-0.2); PLATELET COUNT,PLT 255 K/mm3 (150-400); RED BLOOD CELL COUNT 3.66 M/mm3 (4.10-5.30); WHITE BLOOD CELL COUNT,WBC 8.06 K/mm3 (3.9-11.3)
[2025-05-06 10:00] LABS: A/G RATIO 1.0 (1-2); ALANINE AMINOTRANSFERASE,ALT 14.0 U/L (14-59); ASPARTATE AMNIOTRANSFERASE,AST 13.0 U/L (15-37); BILIRUBIN TOTAL 0.3 mg/dL (0.2-1.0); BLOOD UREA NITROGEN,BUN 13.0 mg/dL (7-18); CARBON DIOXIDE,CO2 28.0 mEq/L (21-32); CHLORIDE,CL 108.0 mEq/L (98-107); CREATININE 0.7 mg/dL (0.55-1.02); EST CRCL DRUG DOSING (CG) 83.95 mL/min; ESTIMATED GFR 109.0 mL/min (>60); GLUCOSE RANDOM 113.0 mg/dL (70-99); POTASSIUM,K 3.9 mEq/L (3.5-5.1); PROTEIN TOTAL,TP 6.9 g/dl (6.4-8.2); SODIUM,NA 143.0 mEq/L (136-145)
[2025-05-06] MEDS: diphenhydrAMINE 50 MG/ML SDV IVPUSH ONE (10:22)
[2025-05-06] MEDS: Iopamidol 612 MG/ML 30 ML SDV IVPUSH ONE (10:40)
[2025-05-06] MEDS: Sodium Chloride 0.9% 10 ML Syringe FLUSH PRN (10:40)
[2025-05-06 10:52] LABS: APPEARANCE,URINE SLT CLOUDY (Clear); GLUCOSE,URINE NEGATIVE (Negative); OCCULT BLOOD,URINE TRACE-INTACT (Negative)
[2025-05-06] MEDS: Ondansetron 4 MG/2 ML SDV IVPUSH ONE (11:07)
[2025-05-06 16:48] VITALS: BP 124/73; PULSE 66
== END 2025-05-06 13:26 | disposition home or self-care (01) ==
LOC: JD.ED 08:39
DX: K52.9 Noninfective gastroenteritis and colitis, unspecified (principal); K21.9 Gastro-esophageal reflux disease without esophagitis; Z87.891 Personal history of nicotine dependence; Z86.16 Personal history of COVID-19; Z79.899 Other long term (current) drug therapy; Z91.041 Radiographic dye allergy status
CPT/HCPCS: 36415; 74177; 80053; 81001; 83690; 84703; 85025; 96361; 96374; 96375; 96376; 99284; J1200; J2405; J7030; Q9967; J1171